=== PATIENT | female | born 1945 | race Caucasian/White ===

== ENCOUNTER 2019-02-22 23:05 | Emergency (ER) | payer OTHER ==
[~2019-02-22] VITALS: Ht 162.6 cm; Wt 70.8 kg
[~2019-02-22 23:05] MED LIST: AMLO-145
[2019-02-23 00:17] VITALS: Ht 162.6 cm; Wt 70.8 kg
[2019-02-23 02:40] VITALS: BP 163/71; PULSE 74; RESP 19
== END 2019-02-23 02:52 | disposition home or self-care (01) ==
LOC: E/R 23:05
DX: R42 Dizziness and giddiness (principal); J45.909 Unspecified asthma, uncomplicated; I10 Essential (primary) hypertension
CPT/HCPCS: 99283